=== PATIENT | male | born 1965 | race Two or more races ===

== ENCOUNTER 2018-06-03 11:43 | Emergency (ER) | payer SELFPAY ==
[~2018-06-03] VITALS: Ht 160 cm; Wt 136.1 kg
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
--- NOTE | 2018-06-03 11:57 | NUR ---
MICHELET LAUNCH ENGINEER AT BEDSIDE FOR EVAL.
[2018-06-03] MEDS ORDERED: ACETAMINOPHEN ES 500 MG TABLET ONE (12:00)
[2018-06-03] MEDS ORDERED: ACETAMINOPHEN ES 500 MG TABLET PO ONE (12:00)
--- NOTE | 2018-06-03 12:02 | NUR ---
RADIOLOGY AT BEDSIDE FOR L SHOULDER XRAY.
--- NOTE | 2018-06-03 12:32 | NUR ---
SHOULDER IMMOBILILZER APPLIED. INSTRUCTIONS PROVIDED TO PT
--- NOTE | 2018-06-03 12:34 | NUR ---
Patient discharged to home in stable condition. Written and verbal after care instructions given. Patient verbalizes understanding of instruction.
[2018-06-03 12:35] VITALS: BP 123/85
== END 2018-06-03 12:41 | disposition home or self-care (01) ==
LOC: ER 11:44
DX: S40.012A Contusion of left shoulder, initial encounter (principal); I10 Essential (primary) hypertension; Z86.73 Personal history of transient ischemic attack (TIA), and cerebral infarction without residual deficits; Z98.890 Other specified postprocedural states; F17.200 Nicotine dependence, unspecified, uncomplicated; W19.XXXA Unspecified fall, initial encounter; Y93.89 Activity, other specified; Y92.39 Other specified sports and athletic area as the place of occurrence of the external cause; Y99.8 Other external cause status
CPT/HCPCS: 29105; 73030; 99284; 99406; A4606; Z7610